=== PATIENT | male | born 1965 | race Caucasian/White ===

== ENCOUNTER 2016-05-17 14:56 | Emergency (ER) | payer SELFPAY ==
[2016-05-17 15:05] VITALS: BP 149/91
--- NOTE | 2016-05-17 15:11 | ER Document Report ---
ED Medical Screen (RME) - General Stated Complaint: THROAT PAIN/SWELLING Mode of Arrival: Ambulatory Information source: Patient Notes: Patient presents to the emergency department with sore throat hurts to swallow and fever that started yesterday. Unsure of strep exposure. Also reports chills. Patient reports he is forcing fluids down. I have greeted and performed a rapid initial assessment of this patient. A comprehensive ED assessment and evaluation of the patient, analysis of test results and completion of the medical decision making process will be conducted by additional ED providers. TRAVEL OUTSIDE OF THE [place] IN LAST 30 DAYS: No - Related Data Allergies/Adverse Reactions: No Known Allergies Allergy (Verified 09/27/12 20:00) Past Medical History - Social History Family history: None - Past Medical History Cardiac Medical History: Reports: Hx Hypertension - Immunizations Hx Diphtheria, Pertussis, Tetanus Vaccination: No Physical Exam - Vital signs Vitals: Temp Pulse Resp BP Pulse Ox 98.2 F 97 16 149/91 H 100 05/17/16 15:04 05/17/16 15:04 05/17/16 15:04 05/17/16 15:04 05/17/16 15:04 Course - Vital Signs Vital signs: Temp Pulse Resp BP Pulse Ox 98.2 F 97 16 149/91 H 100 05/17/16 15:04 05/17/16 15:04 05/17/16 15:04 05/17/16 15:04 05/17/16 15:04
[2016-05-17] MEDS ORDERED: DEXAMETHASONE SOD PHOS INJ 10 MG/1 ML VIAL IM ONE (15:42)
[2016-05-17] MEDS ORDERED: METHYLPREDNISOLONE ACETATE INJ 40 MG/1 ML ML IM ONE (15:42)
[2016-05-17] MEDS ORDERED: PENICILLIN G BENZATHINE 1.2 MILLION UNIT/2 ML DISP.SYRIN IM ONE (15:43)
--- NOTE | 2016-05-17 15:49 | ER Document Report ---
ED ENT - General Chief Complaint: Sore Throat Stated Complaint: THROAT PAIN/SWELLING Mode of Arrival: Ambulatory TRAVEL OUTSIDE OF THE [place] IN LAST 30 DAYS: No - HPI Patient complains to provider of: Throat problem - Related Data Allergies/Adverse Reactions: No Known Allergies Allergy (Verified 05/17/16 15:11) Past Medical History - General Information source: Patient - Social History Smoking Status: Never Smoker Chew tobacco use (# tins/day): No Frequency of alcohol use: Occasional Drug Abuse: None Family History: None Patient has suicidal ideation: No Patient has homicidal ideation: No - Past Medical History Cardiac Medical History: Reports: Hx Hypertension Renal/ Medical History: Denies: Hx Peritoneal Dialysis - Immunizations Hx Diphtheria, Pertussis, Tetanus Vaccination: No Review of Systems - Review of Systems Constitutional: No symptoms reported EENT: Throat swelling Cardiovascular: No symptoms reported Respiratory: No symptoms reported Gastrointestinal: No symptoms reported Genitourinary: No symptoms reported Male Genitourinary: No symptoms reported Musculoskeletal: No symptoms reported Skin: No symptoms reported Hematologic/Lymphatic: No symptoms reported Neurological/Psychological: No symptoms reported Physical Exam - Vital signs Vitals: Temp Pulse Resp BP Pulse Ox 98.2 F 97 16 149/91 H 100 05/17/16 15:04 05/17/16 15:04 05/17/16 15:04 05/17/16 15:04 05/17/16 15:04 Interpretation: Normal - General General appearance: Appears well, Alert - HEENT Head: Normocephalic, Atraumatic Eyes: Normal Pupils: PERRL - Respiratory Respiratory status: No respiratory distress Chest status: Nontender Breath sounds: Normal Chest palpation: Normal - Cardiovascular Rhythm: Regular Heart sounds: Normal auscultation Murmur: No - Abdominal Inspection: Normal Distension: No distension Bowel sounds: Normal Tenderness: Nontender Organomegaly: No organomegaly - Back Back: Normal, Nontender - Extremities General upper extremity: Normal inspection, Nontender, Normal color, Normal ROM , Normal temperature General lower extremity: Normal inspection, Nontender, Normal color, Normal ROM , Normal temperature, Normal weight bearing. No: Quincy's sign - Neurological Neuro grossly intact: Yes Cognition: Normal Orientation: AAOx4 [place] Coma Scale Eye Opening: Spontaneous [place] Coma Scale Verbal: Oriented [place] Coma Scale Motor: Obeys Commands [place] Coma Scale Total: 15 Speech: Normal Motor strength normal: LUE, RUE, LLE, RLE Sensory: Normal - Psychological Associated symptoms: Normal affect, Normal mood - Skin Skin Temperature: Warm Skin Moisture: Dry Skin Color: Normal Course - Vital Signs Vital signs: Temp Pulse Resp BP Pulse Ox 98.2 F 97 16 149/91 H 100 05/17/16 15:04 05/17/16 15:04 05/17/16 15:04 05/17/16 15:04 05/17/16 15:04 Discharge - Discharge Disposition: HOME, SELF-CARE Instructions: Strep Throat ([facility]), Penicillin V K ([facility]), Sore Throat ([facility]) Prescriptions: Tramadol HCl [Ultram 50 mg Tablet] 50 mg PO Q6HP PRN #40 tablet PRN Reason: Naproxen Sodium [Naproxen Sodium ER] 500 mg PO Q12 PRN #20 tablet.sa PRN Reason: Penicillin V Potassium [Penicillin Vk 500 mg Tablet] 500 mg PO BID #20 tablet
== END 2016-05-17 16:45 ==
LOC: ER 14:56
DX: J02.0 Streptococcal pharyngitis (principal); I10 Essential (primary) hypertension
CPT/HCPCS: 99283; 96372; 87070; 87880; J1020; J0561; J1100

== ENCOUNTER 2016-07-12 13:12 | Emergency (ER) | payer SELFPAY ==
[2016-07-12] MEDS ORDERED: ASPIRIN 81 MG TABLET, CHEWABLE PO ONE ×2 (13:55→17:00)
--- NOTE | 2016-07-12 13:56 | ER Document Report ---
ED Medical Screen (RME) - General Chief Complaint: Shortness Of Breath Stated Complaint: SHORTNESS OF BREATH Notes: Patient states he has been having problems with his lungs for a while, but is having increased shortness of breath. Denies recent illness, and has been nonproductive cough. Patient states he had asthma as a child. Patient is a nonsmoker. Patient also reports chest pain. Describes the pain as heaviness. Chest pain started 1 week ago, and is intermittent. Patient states he has a history of high blood pressure, but denies cardiac history. I have greeted and performed a rapid initial assessment of this patient. A comprehensive ED assessment and evaluation of the patient, analysis of test results and completion of the medical decision making process will be conducted by additional ED providers. TRAVEL OUTSIDE OF THE [place] IN LAST 30 DAYS: No - Related Data Allergies/Adverse Reactions: No Known Allergies Allergy (Verified 07/12/16 13:51) Past Medical History - Social History Family history: None - Past Medical History Cardiac Medical History: Reports: Hx Hypertension Renal/ Medical History: Denies: Hx Peritoneal Dialysis - Immunizations Hx Diphtheria, Pertussis, Tetanus Vaccination: No Physical Exam - Vital signs Vitals: Temp Pulse Resp BP Pulse Ox 98.1 F 78 16 141/88 H 99 07/12/16 13:18 07/12/16 13:18 07/12/16 13:18 07/12/16 13:18 07/12/16 13:18 - Respiratory Notes: Lungs clear to auscultation, patient respiratory distress. Course - Vital Signs Vital signs: Temp Pulse Resp BP Pulse Ox 98.1 F 78 16 141/88 H 99 07/12/16 13:18 07/12/16 13:18 07/12/16 13:18 07/12/16 13:18 07/12/16 13:18
[2016-07-12 15:04] LABS: ABSOLUTE EOSINOPHILS # (AUTO) 0.4 10^3/uL (0.0-0.6); ABSOLUTE MONOCYTES (AUTO) 0.6 10^3/uL (0.1-1.4); ABSOLUTE NEUT (AUTO) 2.3 10^3/uL (1.7-8.2); EOSINOPHILS % (AUTO) 9.2 % (0-6); HEMATOCRIT 32.6 % (37.9-51.0); HEMOGLOBIN 10.2 g/dL (13.5-17.0); LYMPHOCYTES % (AUTO) 22.6 % (13-45); MEAN CORPUSCULAR HEMOGLOBIN 23.4 pg (27.0-33.4); MEAN CORPUSCULAR HGB CONC 31.3 g/dL (32.0-36.0); MEAN CORPUSCULAR VOLUME 75 fl (80-97); MONOCYTES % (AUTO) 13.7 % (3-13); RED BLOOD COUNT 4.36 10^6/uL (4.35-5.55); RED CELL DISTRIBUTION WIDTH 18.2 % (11.5-14.0); SEGMENTED NEUTROPHILS % (AUTO) 53.5 % (42-78); WHITE BLOOD COUNT 4.4 10^3/uL (4.0-10.5)
[2016-07-12 15:17] LABS: ALANINE AMINOTRANSFERASE 23 U/L (21-72); ALBUMIN 4.2 g/dL (3.5-5.0); ALKALINE PHOSPHATASE 88 U/L (38-126); ANION GAP 9 (5-19); APPEARANCE,URINE CLEAR; ASPARTATE AMINO TRANSFERASE 20 U/L (17-59); BILIRUBIN,TOTAL 0.6 mg/dL (0.2-1.3); BILIRUBIN,URINE NEGATIVE (NEGATIVE); BLOOD UREA NITROGEN 15 mg/dL (7-20); CALCIUM 9.7 mg/dL (8.4-10.2); CARBON DIOXIDE 28 mmol/L (22-30); CHLORIDE 104 mmol/L (98-107); CREATINE KINASE 150 U/L (55-170); CREATININE RESULT 0.84 mg/dL (0.52-1.25); GLUCOSE 95 mg/dL (75-110); GLUCOSE, URINE NEGATIVE (NEGATIVE); KETONES,URINE NEGATIVE (NEGATIVE); LEUKOCYTE ESTERASE,URINE NEGATIVE (NEGATIVE); NITRITE,URINE NEGATIVE (NEGATIVE); POTASSIUM 4.8 mmol/L (3.6-5.0); PROTEIN,URINE NEGATIVE (NEGATIVE); SODIUM 141.1 mmol/L (137-145); TOTAL PROTEIN 7.2 g/dL (6.3-8.2); URINE SPECIFIC GRAVITY 1.011; UROBILINOGEN,URINE NEGATIVE mg/dL (<2.0)
[2016-07-12 15:24] LABS: TROPONIN I < 0.012 ng/mL
[2016-07-12 15:26] LABS: PROTHROMBIN TIME 12.8 SEC (11.4-15.4)
[2016-07-12] MEDS ORDERED: IPRATROPIUM/ALBUTEROL 0.5-2.5 MG/3 ML AMPUL NEB ONE (16:59)
[2016-07-12] MEDS ORDERED: PREDNISONE 20 MG TABLET PO ONE (16:59)
--- NOTE | 2016-07-12 17:05 | ER Document Report ---
ED General - General Chief Complaint: Shortness Of Breath Stated Complaint: SHORTNESS OF BREATH Mode of Arrival: Ambulatory Information source: Patient Notes: This is a 51-year-old male who presents for evaluation of cough for the past 2 weeks. He states that he will have intermittent spasms of cough which are worse in the morning. He denies any sputum production. He denies any fevers or chills. He has no known sick contacts. He has been recently around many tobacco smokers. He has borrowed a friend's albuterol inhaler which she has been using. He does have a history of asthma in the past but currently does not have a primary care physician and is not on any medications. He states that every time he takes a deep breath he feels the need to cough. He is not having chest pain. TRAVEL OUTSIDE OF THE [place] IN LAST 30 DAYS: No - Related Data Allergies/Adverse Reactions: No Known Allergies Allergy (Verified 07/12/16 13:51) Past Medical History - General Information source: Patient - Social History Smoking Status: Former Smoker Chew tobacco use (# tins/day): No Frequency of alcohol use: None Drug Abuse: None Family History: None Patient has suicidal ideation: No Patient has homicidal ideation: No - Past Medical History Cardiac Medical History: Reports: Hx Hypertension Pulmonary Medical History: Reports: Hx Asthma Renal/ Medical History: Denies: Hx Peritoneal Dialysis Surgical Hx: Negative - Immunizations Hx Diphtheria, Pertussis, Tetanus Vaccination: No Review of Systems - Review of Systems Notes: REVIEW OF SYSTEMS: CONSTITUTIONAL : Denies fever, chills, or sweats. EENT: Denies eye, ear, throat, or mouth pain or symptoms. Denies nasal or sinus congestion. CARDIOVASCULAR: Denies chest pain. RESPIRATORY: As per history of present illness GASTROINTESTINAL: Denies abdominal pain. Denies nausea, vomiting, or diarrhea. GENITOURINARY: Denies difficulty urinating, painful urination, burning, frequency, or blood in urine. MUSCULOSKELETAL: Denies neck or back pain or joint pain or swelling. SKIN: Denies rash or skin lesions. HEMATOLOGIC : Denies easy bruising or bleeding. LYMPHATIC: Denies swollen, enlarged glands. NEUROLOGICAL: Denies altered mental status or loss of consciousness. Denies headache. PSYCHIATRIC: Denies anxiety or stress or depression. ALL OTHER SYSTEMS REVIEWED AND NEGATIVE. Physical Exam - Vital signs Vitals: Temp Pulse Resp BP Pulse Ox 98.1 F 78 16 141/88 H 99 07/12/16 13:18 07/12/16 13:18 07/12/16 13:18 07/12/16 13:18 07/12/16 13:18 - Notes Notes: PHYSICAL EXAMINATION: GENERAL: Well-appearing, well-nourished and in no acute distress. Pleasant and conversant with no conversational dyspnea. He does have frequent cough. HEAD: Atraumatic, normocephalic. EYES: Pupils equal round and reactive to light, extraocular movements intact, sclera anicteric, conjunctiva are normal. ENT: nares patent, oropharynx clear without exudates. Moist mucous membranes. NECK: Normal range of motion, supple without lymphadenopathy LUNGS: Breath sounds clear to auscultation bilaterally and equal. No wheezes rales or rhonchi. HEART: Regular rate and rhythm without murmurs ABDOMEN: Soft, nontender, normoactive bowel sounds. No guarding, no rebound. No masses appreciated. EXTREMITIES: Normal range of motion, no pitting or edema. NEUROLOGICAL: Cranial nerves grossly intact. Normal speech. No gross focal motor or sensory deficits appreciated. PSYCH: Normal mood, normal affect. SKIN: Warm, Dry, normal turgor, no rashes or lesions noted. Course - Re-evaluation Re-evalutation: 07/12/16 17:40 Patient with no tachycardia, tachypnea, or hypoxia. Chest x-ray shows no acute process. He does not have pleuritic pain. This point I do not feel he is high risk for PE. Clinically I do not have suspicion for acute coronary syndrome. We'll treat his bronchitis and asthma with steroids and albuterol. He will follow up with a primary care physician. Strict return precautions were discussed. All of his questions were answered and he is comfortable with the plan. 07/12/16 19:11 Patient was evaluated after his DuoNeb and he stated that he felt much better. He was able to take full deep breaths without coughing. His lungs were clear to auscultation bilaterally. - Vital Signs Vital signs: Temp Pulse Resp BP Pulse Ox 97.4 F 78 18 137/98 H 100 07/12/16 18:35 07/12/16 13:18 07/12/16 18:35 07/12/16 18:35 07/12/16 18:35 - Laboratory Result Diagrams: 07/12/16 14:35 07/12/16 14:35 Laboratory results interpreted by me: 07/12/16 14:35 Hgb 10.2 L Hct 32.6 L MCV 75 L MCH 23.4 L MCHC 31.3 L RDW 18.2 H Monocytes % 13.7 H Eosinophils % 9.2 H - Diagnostic Test Radiology reviewed: Reports reviewed - Chest x-ray negative - EKG Interpretation by Me Additional EKG results interpreted by me: 07/12/16 18:03 EKG at 1430 demonstrates sinus rhythm with a rate of 69. He has nonspecific T- wave changes. There is ST elevation or depression. Discharge - Discharge Clinical Impression: Bronchitis Asthma Qualifiers: Asthma severity: unspecified severity Asthma complication type: uncomplicated Qualified Code(s): J45.909 - Unspecified asthma, uncomplicated Condition: Stable Disposition: HOME, SELF-CARE Additional Instructions: BRONCHITIS: You have acute bronchitis. This disease is an infection or inflammation of the air passageways in your lungs. Symptoms usually include cough, low grade fever, shortness of breath, and wheezing. The cough usually persists for a couple of weeks. Most cases of bronchitis get better without antibiotics. We prescribe antibiotics when we believe bacteria are damaging your airways, or if there's high risk the bronchitis will worsen into pneumonia. Increase your fluid intake. A cool mist humidifier may make your lungs more comfortable. An expectorant (cough medicine that loosens phlegm) can help. If you smoke, STOP!!! Recovery from bronchitis can be somewhat slow, but you should see improvement within a day or two. Repeated episodes of bronchitis may result in lung damage -- for example, chronic bronchitis, recurrent pneumonias, or emphysema. Call the doctor if you develop increasing fever, shortness of breath, chest pain, bloody sputum, or otherwise worsen. If you have not improved at all after several days, contact the physician. BRONCHITIS WITH BRONCHOSPASM (WHEEZING): You have bronchitis with bronchospasm (wheezing). Sometimes people develop wheezing with a chest cold. This occurs either because of an underlying tendency toward asthma or because the virus itself irritates the bronchial tubes. This irritation causes cough, shortness of breath, and wheezing. Emergency treatment of bronchospasm may include adrenaline shots or bronchodilator aerosol. You may feel lightheaded and have a rapid pulse for an hour or two. Rest and get plenty of fluids. At home, we'll treat you with a bronchodilator inhaler. Corticosteroids may be required for some patients. Until you recover, avoid chemical fumes, dusts, pollens, and exercising in very cold or dry air. If you smoke, stop now! Most cases of bronchitis get better without antibiotics. We prescribe antibiotics when we believe bacteria are damaging your airways, or if there's high risk the bronchitis will worsen into pneumonia. Increase your fluid intake. A cool mist humidifier may make your lungs more comfortable. An expectorant (cough medicine that loosens phlegm) can help. Repeated episodes of bronchitis and bronchospasm may result in lung damage -- for example, chronic bronchitis, recurrent pneumonias, or emphysema. If you develop a fever, increased wheezing, chest pain, or severe shortness of breath, you should contact the doctor immediately. COUGH-SUPPRESSANT & EXPECTORANT MEDICATION: You are to use a cough medication as needed for relief of symptoms. This medicine is a combination of an expectorant (to make the mucous thinner and more easily "coughed up") and a cough suppressant (to reduce the frequency of coughing). The cough-suppressant medicine is related to narcotics. You may experience mild nausea and sleepiness. Some patients who are very sensitive to narcotics may have stomach pain from this medicine. Taking the medicine with food reduces these side effects. Do not drive or work with machinery until you know how this medicine affects you. The expectorant should have no side effects. Iodine-containing expectorants (such as organidin) should not be taken by persons with active thyroid disease unless approved by your doctor. Call the doctor if you develop shortness of breath, hives, rash, itching, lightheadedness, or severe nausea and vomiting. INHALED BRONCHODILATORS: You have received a treatment of and/or prescription for an inhaled bronchodilator -- a medication which stimulates the airways in the lung to dilate. This improves the flow of air in asthma, bronchitis, and emphysema. These medicines have some similarity to adrenaline, and can cause similar side effects: shakiness, racing heart, and a sense of nervousness. These side effects decrease with time. Contact your doctor if these side effects are severe. Do not over-use the medicine. Too-frequent use of the inhaler may make it ineffective. Call your doctor if the inhaler is not controlling your symptoms at the prescribed doses. STEROID MEDICATION: You have been given an injection of or oral medicine of the cortisone/ steroid class. This medication is used to control inflammation or allergy. Heladio t is usually only given for a short period of time, until the acute process subsides. There are usually no side effects from short-term use of cortisone-like medications. Some persons feel an increased sense of well-being and are not sleepy at bedtime. Long-term use of cortisone medications is best avoided, unless required for a severe condition. If your condition does not remit, or relapses after the course of corticosteroid medication, you should consult your physician. FOLLOW-UP CARE: If you have been referred to a physician for follow-up care, call the physician s office for an appointment as you were instructed or within the next two days. If you experience worsening or a significant change in your symptoms, notify the physician immediately or return to the Emergency Department at any time for re-evaluation. Prescriptions: Albuterol Sulfate [Proair HFA Inhalation Aerosol 8.5 gm MDI] 2 puff IH Q4H PRN # 1 mdi PRN Reason: Guaifenesin/Codeine Phos [Robitussin-AC Syrup 59 ml] 10 ml PO QIDP PRN #100 ml PRN Reason: Cough Prednisone [Deltasone 20 mg Tablet] 3 tab PO DAILY 4 Days
[2016-07-12 18:38] VITALS: BP 137/98
--- NOTE | 2016-07-12 19:33 | EKG REPORT ---
SEVERITY:- OTHERWISE NORMAL ECG - SINUS RHYTHM BORDERLINE LEFT AXIS DEVIATION : Confirmed by: Chloé Becerra 12-Jul-2016 19:33:09
== END 2016-07-12 18:40 | disposition home or self-care (01) ==
LOC: ER 13:12
DX: J40 Bronchitis, not specified as acute or chronic (principal); J45.909 Unspecified asthma, uncomplicated; R05 Cough; Z77.22 Contact with and (suspected) exposure to environmental tobacco smoke (acute) (chronic); Z87.891 Personal history of nicotine dependence; I10 Essential (primary) hypertension
CPT/HCPCS: 93005; 94640; 99285; 36415; 82553; 82550; 85025; 85610; 80053; 81001; 84484; 71010; 93010; J7512; J7620

== ENCOUNTER 2016-11-29 18:09 | Emergency (ER) | payer OTHER ==
[2016-11-29] MEDS ORDERED: HYDROMORPHONE HCL INJ/PF 2 MG/ML AMPULE ONE (18:22)
[2016-11-29] MEDS ORDERED: NORMAL SALINE 1000 ML 1,000 ML IV PRN (18:24)
[2016-11-29] MEDS ORDERED: HYDROMORPHONE HCL INJ/PF 2 MG/ML AMPULE IV ONE ×3 (18:24→20:21)
[2016-11-29] MEDS ORDERED: DIPHENHYDRAMINE HCL 50 MG/ML VIAL IV ONE (18:24)
[2016-11-29] MEDS ORDERED: ONDANSETRON HCL INJ/PF 4 MG/2 ML SDV IV ONE (18:24)
--- NOTE | 2016-11-29 19:00 | RADIOLOGY REPORT (SQ) ---
EXAM DESCRIPTION: HAND RIGHT 3 VIEWS COMPLETED DATE/TIME: 11/29/2016 6:46 pm REASON FOR STUDY: sting ray to 5th finger COMPARISON: 01/09/2015 EXAM PARAMETERS: NUMBER OF VIEWS: Three views. TECHNIQUE: AP, lateral and oblique radiographic images acquired of the right hand. LIMITATIONS: None. FINDINGS: MINERALIZATION: Normal. BONES: No acute fracture or dislocation. No worrisome bone lesions. JOINTS: Degenerative joint changes seen in the interphalangeal joint of the thumb and in the 3rd meta tarsal-phalangeal joint. SOFT TISSUES: Small foreign body is seen at the 4th proximal phalanx. This is unchanged. OTHER: No other significant finding. IMPRESSION: Degenerative joint disease with no acute osseous abnormality and no radiopaque foreign b teresita. TECHNICAL DOCUMENTATION: JOB ID: [id number] [employer]- All Rights Reserved
[2016-11-29] MEDS ORDERED: PIPERACILLIN/TAZOBACTAM 3.375 GM VIAL IV ONE (19:14)
[2016-11-29] MEDS ORDERED: LIDOCAINE 1% INJ-PF (10 MG/ML) 30 ML SDV INJ ONE (19:18)
[2016-11-29] MEDS ORDERED: DOXYCYCLINE HYCLATE 100 MG TABLET PO ONE (20:25)
[2016-11-29] MEDS ORDERED: DIPH/PERTUSS(ACELL)/TETANUS VAC/PF 0.5 ML SYR (>=10YO) IM ONE (20:25)
--- NOTE | 2016-11-29 20:27 | ER Document Report ---
ED General - General Chief Complaint: Puncture Wound Stated Complaint: POSSIBLE STING RAY BITE Mode of Arrival: Medic Information source: Patient Notes: This is a 51-year-old man that presents to the emergency room with a stingray bite to the right fifth finger. Patient is in excruciating pain. TRAVEL OUTSIDE OF THE [place] IN LAST 30 DAYS: No - HPI Onset: Just prior to arrival Onset/Duration: Sudden Quality of pain: Dull Severity: Severe Pain Level: 5 Associated symptoms: denies: Chest pain, Fever, Shortness of breath Exacerbated by: Denies Relieved by: Denies Similar symptoms previously: No Recently seen / treated by doctor: No - Related Data Allergies/Adverse Reactions: No Known Allergies Allergy (Verified 07/12/16 13:51) Past Medical History - General Information source: Patient - Social History Smoking Status: Unknown if Ever Smoked Cigarette use (# per day): No Chew tobacco use (# tins/day): No Frequency of alcohol use: None Drug Abuse: None Lives with: Family Family History: None Patient has suicidal ideation: No Patient has homicidal ideation: No - Past Medical History Cardiac Medical History: Reports: Hx Hypertension Pulmonary Medical History: Reports: Hx Asthma Renal/ Medical History: Denies: Hx Peritoneal Dialysis Surgical Hx: Negative - Immunizations Hx Diphtheria, Pertussis, Tetanus Vaccination: No Review of Systems - Review of Systems Constitutional: denies: Chills, Fever EENT: No symptoms reported Cardiovascular: No symptoms reported Respiratory: No symptoms reported Gastrointestinal: No symptoms reported Genitourinary: No symptoms reported Male Genitourinary: No symptoms reported Musculoskeletal: See HPI Skin: No symptoms reported Hematologic/Lymphatic: No symptoms reported Neurological/Psychological: No symptoms reported - 1 Physical Exam - Vital signs Vitals: Temp Pulse Resp BP Pulse Ox 98.5 F 93 16 151/83 H 99 11/29/16 18:26 11/29/16 18:26 11/29/16 18:26 11/29/16 18:26 11/29/16 18:26 Notes: Physical exam: GENERAL: 51-year-old man, alert and oriented 3, in significant pain. HEAD: Atraumatic, normocephalic. EYES: Pupils equal round and reactive to light, extraocular movements intact, sclera anicteric, conjunctiva are normal. ENT: Moist mucous membranes. NECK: Normal range of motion, supple LUNGS: Breath sounds clear HEART: Regular rate and rhythm without murmurs, rubs or gallops. ABDOMEN: Soft, normoactive bowel sounds. No tenderness to palpation. No guarding, no rebound. No masses appreciated. EXTREMITIES: Normal range of motion, no pitting or edema. No clubbing or cyanosis.. There is an entrance laterally over the dorsal proximal phalanx of the fifth finger. There is no obvious foreign body. NEUROLOGICAL: Cranial nerves II through XII fatou patient has pain and some swelling over the fifth finger sly intact. Normal speech, normal gait. PSYCH: Normal mood, normal affect. SKIN: Warm, Dry, normal turgor, no rashes or lesions noted. Course - Vital Signs Vital signs: Temp Pulse Resp BP Pulse Ox 98.5 F 78 18 153/93 H 100 11/29/16 18:26 11/29/16 20:48 11/29/16 20:48 11/29/16 20:48 11/29/16 20:48 - Diagnostic Test Radiology reviewed: Image reviewed, Reports reviewed - no fb Procedures - Incision and Drainage Right Finger Time completed: 20:23 Type: Single Anesthetic type: 1% Lidocaine mL's of anesthetic: 3 Blade size: 11 I&D procedure: Chlorprep applied Incision Method: Incision made by scalpel Notes: 11/29/16 20:23 I extended the opening in order to identify any foreign body. I did irrigate the cavity. Feels like the stinger went and laterally over the dorsal aspect of the finger. The extensor tendons are intact. Fingers neurovascularly intact. I irrigated the area out with saline and reinspected and could not find any foreign body. Patient received IV Zosyn and a tetanus shot in the ER. Discharge - Discharge Clinical Impression: Stingray to the right hand Condition: Stable Disposition: HOME, SELF-CARE Instructions: Tetanus Immunization Given ([facility]) Additional Instructions: Return to the emergency room for increasing pain, redness, swelling or pus discharge or any concerns that the wound is getting infected or take the antibiotics as prescribed: Start tomorrow Take the pain medicine as needed. The pain medicine you're taking prescribed as a narcotic. There are several important things you should know about this medicine: 1. This medicine contains Tylenol: It is important that you do not take Tylenol (or acetaminophen) while on this medicine. Tylenol is metabolized by the liver and taking too much Tylenol (acetaminophen) can lay to liver damage and even liver failure. 2. Taking narcotics for too long can lead to physical and mental dependence. Take this medicine only if really needed and in the lowest quantity to achieve pain relief. 3. Do not drink alcohol while on this medicine. Alcohol interacts with narcotics and the combination can be dangerous. 4. Do not drive or operate machinery while on this medicine. 5. Narcotics do cause constipation, so drink plenty of fluids and daily stool softeners. Prescriptions: Doxycycline Hyclate 100 mg PO BID #20 capsule Oxycodone HCl/Acetaminophen [Percocet 5-325 mg Tablet] 1 - 2 tab PO ASDIR PRN # 25 tablet PRN Reason: Forms: Return to Work Referrals: VENANCIO CASTILLO, DO [ACTIVE STAFF] - Follow up as needed (This is the number the hand surgeon. Call the office on Friday to be seen. Tell them you are in the ER with a stingray sting to the right hand. Tell them that the ER doctor wanted to seen this week.)
[2016-11-29 20:48] VITALS: BP 153/93
== END 2016-11-29 20:49 | disposition home or self-care (01) ==
LOC: ER 18:09
PROC: 0H9MXZZ Drainage of Right Foot Skin, External Approach (ICD-10-PCS; principal; 2016-11-29)
DX: T63.511A Toxic effect of contact with stingray, accidental (unintentional), initial encounter (principal); W56.81XA Bitten by other nonvenomous marine animals, initial encounter
CPT/HCPCS: 96376; 99284; 96361; 90471; 96375; 96365; 73130; 90715; 10120; J1200; J1170; J2405; J7030; J2543

== ENCOUNTER 2017-04-08 17:17 | Emergency (ER) | payer OTHER ==
[2017-04-08] MEDS ORDERED: HYDROCODONE/ACETAMINOPHEN 5-325 MG TABLET PO ONE (18:29)
--- NOTE | 2017-04-08 18:35 | ER Document Report ---
ED Fall - General Chief Complaint: Fall Injury Stated Complaint: FALL/RIGHT SIDE BODY PAIN,LEFT ELBOW Time Seen by Provider: 04/08/17 18:26 Mode of Arrival: Ambulatory Information source: Patient Notes: 51-year-old male presents to ED for complaint of left elbow, right flank, right arm, and right hip after he tripped on some wet metal slipped and fell landing on her other medical onto his right side jarring his left elbow and causing his sciatica to be inflamed. He has pain in the right kidney and liver area. No bruising scratching or lacerations noted TRAVEL OUTSIDE OF THE [place] IN LAST 30 DAYS: No - HPI Occurred: Just prior to arrival Where: Public place Context: Slipped Associated symptoms: None Location of injury/pain: Abdomen, Back, Elbow, Hip, Upper extremity - right Quality of pain: Achy, Sharp Severity: Moderate Pain Level: 4 - Related data Allergies/Adverse Reactions: No Known Allergies Allergy (Verified 07/12/16 13:51) Past Medical History - General Information source: Patient - Social History Smoking Status: Never Smoker Cigarette use (# per day): No Chew tobacco use (# tins/day): No Smoking Education Provided: No Frequency of alcohol use: Heavy Drug Abuse: None Occupation: 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 denies: CAD, COPD, DM, Hyperlipidemia, Hypertension, Malignancy, Thyroid Disfunction Patient has homicidal ideation: No - Medical History Medical History: Other - Anemia - Past Medical History Cardiac Medical History: Reports: Hx Hypertension Pulmonary Medical History: Reports: Hx Asthma EENT Medical History: Reports: None Neurological Medical History: Reports: None Endocrine Medical History: Reports: None Renal/ Medical History: Reports: None Malignancy Medical History: Reports None GI Medical History: Reports: None Musculoskeltal Medical History: Reports Hx Arthritis, Reports Hx Musculoskeletal Trauma Skin Medical History: Reports None Psychiatric Medical History: Reports: None Traumatic Medical History: Reports: None Infectious Medical History: Reports: None Surgical Hx: Negative Past Surgical History: Reports: None - Immunizations Hx Diphtheria, Pertussis, Tetanus Vaccination: No Review of Systems - Review of Systems Constitutional: No symptoms reported EENT: No symptoms reported Cardiovascular: No symptoms reported Respiratory: No symptoms reported Gastrointestinal: Abdominal pain Genitourinary: Flank pain Male Genitourinary: No symptoms reported Musculoskeletal: Back pain, Joint pain, Muscle pain, Muscle stiffness Skin: No symptoms reported Hematologic/Lymphatic: No symptoms reported Neurological/Psychological: No symptoms reported -: Yes All other systems reviewed and negative Physical Exam - Vital signs Vitals: Temp Pulse Resp BP Pulse Ox 97.7 F 79 18 165/94 H 99 04/08/17 17:28 04/08/17 17:28 04/08/17 17:28 04/08/17 17:28 04/08/17 17:28 Interpretation: Normal - General General appearance: Appears well, Alert - HEENT Head: Normocephalic, Atraumatic Eyes: Normal Pupils: PERRL - Respiratory Respiratory status: No respiratory distress Chest status: Nontender Breath sounds: Normal Chest palpation: Normal - Cardiovascular Rhythm: Regular Heart sounds: Normal auscultation Murmur: No - Abdominal Inspection: Normal Distension: No distension Bowel sounds: Normal Tenderness: Tender - right upper and lower abdomen after fall Organomegaly: No organomegaly - Back Back: Normal, CVA tenderness - right flank area after fall - Extremities General upper extremity: Normal inspection, Normal color, Normal ROM, Normal temperature General lower extremity: Normal inspection, Nontender, Normal color, Normal ROM , Normal temperature, Normal weight bearing. No: Quincy's sign Arm: Tender - right Elbow: Tender - left, Limited ROM - due to pain Hip: Tender - right - Neurological Neuro grossly intact: Yes Cognition: Normal Orientation: AAOx4 [place] Coma Scale Eye Opening: Spontaneous [place] Coma Scale Verbal: Oriented [place] Coma Scale Motor: Obeys Commands [place] Coma Scale Total: 15 Speech: Normal Motor strength normal: LUE, RUE, LLE, RLE Sensory: Normal - Psychological Associated symptoms: Normal affect, Normal mood - Skin Skin Temperature: Warm Skin Moisture: Dry Skin Color: Normal Course - Re-evaluation Re-evalutation: 04/08/17 21:10 Discussed CAT scan x-ray and labs with patient and Dr. Ro. Patient has a history of anemia and he has frequent low H&H's. He states he is on iron noticed that he needs to increase it. He also drinks daily and has been told that he needs to stop. No acute injuries noted to the back or the elbow. Patient will be discharged home with a [employer] dispense pack and a prescription for Flexeril. Patient was instructed to use ibuprofen for his pain but to be careful that he does not take it while drinking. He also was told to take ibuprofen on a full stomach. - Vital Signs Vital signs: Temp Pulse Resp BP Pulse Ox 98.7 F 79 16 155/89 H 99 04/08/17 20:54 04/08/17 20:54 04/08/17 20:54 04/08/17 20:54 04/08/17 20:54 - Laboratory Result Diagrams: 04/08/17 18:46 04/08/17 18:46 Laboratory results interpreted by me: 04/08/17 18:46 RBC 4.16 L Hgb 8.8 L Hct 28.7 L MCV 69 L MCH 21.2 L MCHC 30.7 L RDW 19.2 H Band Neutrophils % 1 L - Diagnostic Test Radiology reviewed: Image reviewed, Reports reviewed Discharge - Discharge Clinical Impression: right flank contusion Fall Qualifiers: Encounter type: initial encounter Qualified Code(s): W19.XXXA - Unspecified fall, initial encounter Left elbow contusion Qualifiers: Encounter type: initial encounter Qualified Code(s): S50.02XA - Contusion of left elbow, initial encounter Low back pain Qualifiers: Chronicity: unspecified Back pain laterality: right Sciatica presence: with sciatica Sciatica laterality: sciatica of right side Qualified Code(s): M54.41 - Lumbago with sciatica, right side Contusion of right hip Qualifiers: Encounter type: initial encounter Qualified Code(s): S70.01XA - Contusion of right hip, initial encounter Condition: Stable Disposition: HOME, SELF-CARE Instructions: Family Physicians / Practices Additional Instructions: CONTUSION: Your injury has resulted in a contusion -- a crushing of the deep tissues. No injury to important structures was detected during the physician's exam. Contusions vary in the amount of pain they cause, and in the length of time required for healing. Typically, the area will become bruised, and will remain painful to touch for two or three weeks. However, most patients are back to working and playing within a few days. After the initial period of rest and cold-packs, your symptoms (together with the doctor's recommendations) will determine how rapidly you can get back to full activity. Usually this means "do what feels okay, but don't do things that hurt." If re-examination was recommended, it's important to follow up as instructed. Call the doctor or return any time if pain increases, if swelling becomes severe, if you develop numbness or weakness in an injured extremity, or if any other alarming symptoms occur. LOW BACK PAIN: Three out of every four people will have an episode of disabling back pain during their lifetime. Most commonly the pain is due to straining of the muscles and ligaments in the low back. Usual treatment includes: (1) Rest on a firm surface. Avoid lying on your stomach. (2) Ice pack the painful area. After a few days, gentle heat may be used intermittently to relax the area, or ice packs can be continued. (3) Medication may be needed -- muscle relaxers and antiinflammatory medicines are commonly used. (4) As the back improves, exercises are prescribed to strengthen the back and abdominal muscles. Your doctor will advise you on the proper care for your back at each stage in your recovery. You may be better in a few days -- or healing may take several weeks. If new symptoms of a "herniated disc" (radiation of pain, numbness, or tingling down the back of the leg or weakness in the leg) occur, you should be re-examined. Further testing may be necessary. USE OF TYLENOL (ACETAMINOPHEN): Acetaminophen may be taken for pain relief or fever control. It's much safer than aspirin, offering a wider range of "safe" dosages. It is safe during . Some brand names are Tylenol, Panadol, Datril, Anacin 3, Tempra, and Liquiprin. Acetaminophen can be repeated every four hours. The following are maximum recommended dosages: WEIGHT Dose Drops Elixir Chewable( 80mg) (LBS.) drprs=droppers tsp=teaspoon 6 40 mg 0.4 ml (1/2) 6-11 80 mg 0.8 ml (full) tsp 1 tab 12-16 120 mg 1 1/2 drprs 3/4 tsp 1 1/2 tabs 17-23 160 mg 2 drprs 1 tsp 2 tabs 24-30 240 mg 3 drprs 1 1/2 tsp 3 tabs 30-35 320 mg 2 tsp 4 tabs 36-41 360 mg 2 1/4 tsp 4 1/2 tabs 42-47 400 mg 2 1/2 tsp 5 tabs 48-53 480 mg 3 tsp 6 tabs 54-59 520 mg 3 1/4 tsp 6 1/2 tabs 60-64 560 mg 3 1/2 tsp 7 tabs 65-70 600 mg 3 3/4 tsp 7 1/2 tabs 71-76 640 mg 4 tsp 8 tabs 77-82 720 mg 4 1/2 tsp 9 tabs 83-88 800 mg 5 tsp 10 tabs >89 pounds or adults 650 mg to 900 mg Acetaminophen can be repeated every four hours. Maximum dose not to exceed 4000 mg a day. These maximum recommended dosages are slightly higher than the dosages written on the product container, but these dosages are very safe and below the toxic dosage for acetaminophen. Ibuprofen Ibuprofen is an excellent, safe drug for pain control. In addition, it has potent antiinflammatory effects which are beneficial, especially in the treatment of injuries, arthritis, or tendonitis. It's best to take ibuprofen with food. Persons with ulcer disease or allergy to aspirin should notify their physician of this before taking ibuprofen. Take the medication exactly as prescribed. Don't take additional doses unless instructed to do so by your doctor. If you develop wheezing, shortness of breath, hives, faintness, stomach pain, vomiting, or dark black stools, return for re-evaluation at once. ICE PACKS: Apply ice packs frequently against the painful area. Many different schedules are recommended, such as "20 minutes on, 20 minutes off" or "one hour ice, two hours rest." If you need to work, you may need to go longer between ice treatments. You should plan to have the area ice packed AT LEAST one fourth of the time. The ice should be applied over the wrap, tape, or splint, or over a layer of cloth -- not directly against the skin. Some ice bags have a built-in cloth and can be put directly on the skin. WARM PACKS: After approximately two days, apply gentle heat (such as a heating pad or hot water bottle) for about 20 to 30 minutes about every two hours -- at least four times daily. Warmth and elevation will help you make a more rapid recovery , and will ease the pain considerably. Do not use HOT heat, and never apply heat for longer than 30 minutes. The continuous heat can invisibly damage skin and muscles -- even when no burn is seen on the surface. Damaged muscles can make you MORE sore. MUSCLE RELAXERS: Muscle relaxing medications are usually prescribed for acute muscle spasm or injury to the neck and back. They are often combined with antiinflammatory pain medication for increased relief. You may stop the muscle relaxer when the pain and stiffness have improved. Start the medication again if spasms recur. Muscle relaxers may cause drowsiness, especially with the first dose. Do not operate machinery or drive while under the effects of the medication. Most muscle relaxers last up to 24 hours. Do not combine the medication with alcohol. ORAL NARCOTIC MEDICATION: You have been given a [employer] dispense pack for pain control. This medication is a narcotic. It's best taken with food, as nausea can result if taken on an empty stomach. Don't operate machinery or drive within six hours of taking this medication. Do not combine this medicine with alcohol, or with any medication which can cause sedation (such as cold tablets or sleeping pills) unless you get permission from the physician. Narcotics tend to cause constipation. If possible, drink plenty of fluids and eat a diet high in fiber and fruits. FOLLOW-UP CARE: If you have been referred to a physician for follow-up care, call the physician s office for an appointment as you were instructed or within the next two days. If you experience worsening or a significant change in your symptoms, notify the physician immediately or return to the Emergency Department at any time for re-evaluation. Prescriptions: Cyclobenzaprine HCl [Flexeril 5 mg Tablet] 5 mg PO TID #10 tablet Forms: Elevated Blood Pressure, Return to Work Referrals: [facility] [Provider Group] - Follow up as needed
[2017-04-08 19:07] LABS: HEMATOCRIT 28.7 % (37.9-51.0); HEMOGLOBIN 8.8 g/dL (13.5-17.0); HGB HCT DIFFERENCE -2.3; MEAN CORPUSCULAR HEMOGLOBIN 21.2 pg (27.0-33.4); MEAN CORPUSCULAR HGB CONC 30.7 g/dL (32.0-36.0); MEAN CORPUSCULAR VOLUME 69 fl (80-97); RED BLOOD COUNT 4.16 10^6/uL (4.35-5.55); RED CELL DISTRIBUTION WIDTH 19.2 % (11.5-14.0); WHITE BLOOD COUNT 5.3 10^3/uL (4.0-10.5)
[2017-04-08 19:24] LABS: ABSOLUTE EOSINOPHILS# (MANUAL) 0.2 10^3/uL (0.0-0.6); BAND NEUTROPHILS % (MANUAL) 1 % (3-5); BASOPHILS % (MANUAL) 0 % (0-2); EOSINOPHILS % (MANUAL) 4 % (0-6); LYMPHOCYTES % (MANUAL) 20 % (13-45); TOTAL CELLS COUNTED 100
[2017-04-08 19:25] LABS: ALANINE AMINOTRANSFERASE 31 U/L (21-72); ALBUMIN 4.5 g/dL (3.5-5.0); ALKALINE PHOSPHATASE 97 U/L (38-126); ANION GAP 12 (5-19); ASPARTATE AMINO TRANSFERASE 19 U/L (17-59); BILIRUBIN,DIRECT 0.3 mg/dL (0.0-0.4); BILIRUBIN,TOTAL 0.8 mg/dL (0.2-1.3); BLOOD UREA NITROGEN 15 mg/dL (7-20); CALCIUM 9.1 mg/dL (8.4-10.2); CARBON DIOXIDE 26 mmol/L (22-30); CHLORIDE 103 mmol/L (98-107); CREATININE RESULT 0.89 mg/dL (0.52-1.25); GLUCOSE 87 mg/dL (75-110); HYPOCHROMASIA 2+; POTASSIUM 4.2 mmol/L (3.6-5.0); SODIUM 140.6 mmol/L (137-145); TOTAL PROTEIN 7.2 g/dL (6.3-8.2)
[2017-04-08 19:26] LABS: ANISOCYTOSIS 2+; MICROCYTOSIS 2+; OVALOCYTES 1+; POIKILOCYTOSIS 1+
[2017-04-08 19:54] LABS: APPEARANCE,URINE CLEAR; BILIRUBIN,URINE NEGATIVE (NEGATIVE); GLUCOSE, URINE NEGATIVE (NEGATIVE); KETONES,URINE NEGATIVE (NEGATIVE); LEUKOCYTE ESTERASE,URINE NEGATIVE (NEGATIVE); NITRITE,URINE NEGATIVE (NEGATIVE); PROTEIN,URINE NEGATIVE (NEGATIVE); URINE SPECIFIC GRAVITY 1.016; UROBILINOGEN,URINE NEGATIVE mg/dL (<2.0)
--- NOTE | 2017-04-08 19:56 | RADIOLOGY REPORT (SQ) ---
EXAM DESCRIPTION: ELBOW LEFT OVER 2 VIEWS COMPLETED DATE/TIME: 04/08/2017 7:38 pm REASON FOR STUDY: Fall and pain COMPARISON: None. NUMBER OF VIEWS: Four views. TECHNIQUE: AP, lateral, and both oblique radiographic images acquired of the left elbow. LIMITATIONS: None. FINDINGS: MINERALIZATION: Normal. BONES: No acute fracture or dislocation. No worrisome bone lesions. JOINT: No effusion. SOFT TISSUES: No soft tissue swelling. No foreign body. OTHER: No other significant finding. IMPRESSION: NEGATIVE STUDY OF THE LEFT ELBOW. NO RADIOGRAPHIC EVIDENCE OF ACUTE INJURY. TECHNICAL DOCUMENTATION: JOB ID: [id number] [employer]- All Rights Reserved
--- NOTE | 2017-04-08 20:32 | RADIOLOGY REPORT (SQ) ---
EXAM DESCRIPTION: CT ABD/PELVIS WITH IV ONLY COMPLETED DATE/TIME: 04/08/2017 8:15 pm REASON FOR STUDY: right abdomen pelvic flank pain after fall COMPARISON: None. TECHNIQUE: CT scan of the abdomen and pelvis performed using helical scanning technique with dynamic intravenous contrast injection. No oral contrast. Images reviewed with lung, soft tissue, and bone windows. Reconstructed coronal and sagittal MPR images reviewed. Delayed images for evaluation of the urinary system also acquired. All images stored on PACS. All CT scanners at this facility use dose modulation, iterative reconstruction, and/or weight based d osing when appropriate to reduce radiation dose to as low as reasonably achievable (ALARA). [facility]: Dose Right [facility]: CareDose [facility]: Dose Right [facility]: Teradose 4D [facility]: [employer] CONTRAST TYPE AND DOSE: 98 mL Isovue 370 RENAL FUNCTION: Creatinine 0.89 RADIATION DOSE: . LIMITATIONS: None. FINDINGS: LOWER CHEST: There are some minimal linear densities in the left lung base which could rep resent subsegmental atelectasis or scarring. LIVER: Normal size. No masses. No dilated ducts. SPLEEN: Normal size. No focal lesions. PANCREAS: No masses. No significant calcifications. No adjacent inflammation or peripancreatic fluid collections. Pancreatic duct not dilated. GALLBLADDER: No identified stones by CT criteria. No inflammatory changes to suggest cholecystitis. ADRENAL GLANDS: No significant masses or asymmetry. RIGHT KIDNEY AND URETER: No solid masses. No significant calcifications. No hydronephrosis or hyd roureter. LEFT KIDNEY AND URETER: No solid masses. No significant calcifications. No hydronephrosis or hydr oureter. AORTA AND VESSELS: No aneurysm. No dissection. Renal arteries, SMA, celiac without stenosis. RETROPERITONEUM: No retroperitoneal adenopathy, hemorrhage or masses. BOWEL AND PERITONEAL CAVITY: No masses or inflammatory changes. No free fluid or peritoneal masses. APPENDIX: Calcific densities are identified within the appendix consistent with appendicoliths. Ther e is no CT evidence for appendicitis PELVIS: No mass. No free fluid. Normal bladder. ABDOMINAL WALL: No masses. No hernias. BONES: No significant or acute findings. OTHER: No other significant finding. IMPRESSION: Calcific densities are identified within the appendix consistent with appendicoliths. T here is no CT evidence for appendicitis. No other significant intra-abdominopelvic abnormalities wer e identified. Other findings as noted above TECHNICAL DOCUMENTATION: JOB ID: [id number] Quality ID # [id number]: Final reports with documentation of one or more dose reduction techniques (e.g., Au tomated exposure control, adjustment of the mA and/or kV according to patient size, use of iterative reconstruction technique) 2010 [employer]- All Rights Reserved
[2017-04-08 20:58] VITALS: BP 155/89
[2017-04-08] MEDS ORDERED: HYDROCODONE/ACETAMINOPHEN 5-325 MG 6 TAB/DSPK PO PRN (21:05)
== END 2017-04-08 21:22 | disposition home or self-care (01) ==
LOC: ER 17:17
DX: S30.1XXA Contusion of abdominal wall, initial encounter (principal); S50.02XA Contusion of left elbow, initial encounter; S70.01XA Contusion of right hip, initial encounter; M54.41 Lumbago with sciatica, right side; M79.1 Myalgia; W01.0XXA Fall on same level from slipping, tripping and stumbling without subsequent striking against object, initial encounter; I10 Essential (primary) hypertension
CPT/HCPCS: 36415; 74177; 80053; 81001; 85025; 99284

== ENCOUNTER 2017-12-03 10:02 | Emergency (ER) | payer SELFPAY ==
--- NOTE | 2017-12-03 10:52 | ER Document Report ---
ED Medical Screen (RME) - General Chief Complaint: Shortness Of Breath Stated Complaint: SHORTNESS OF BREATH Time Seen by Provider: 12/03/17 10:50 TRAVEL OUTSIDE OF THE [place] IN LAST 30 DAYS: No - HPI Patient complains to provider of: Shortness of breath last night Onset: Yesterday Onset/Duration: Sudden Quality of pain: No pain Associated Symptoms: Shortness of breath - 52-year-old male presents for evaluation of shortness of breath yesterday after having been working on his truck, he has had a low-grade sore throat and possible URI. He subsequently had some chest tightness and shortness of breath which resolved after is using of albuterol and a little bit of time. He has had episodes like this in the past which were attributed generally to his asthma. Nothing seemed to make it any worse, the albuterol seem to make it better, there is no exertional component, he had no chest pain, no lightheadedness, no dizziness. - Related Data Allergies/Adverse Reactions: No Known Allergies Allergy (Verified 12/03/17 10:05) Past Medical History - Social History Cigarette use (# per day): No Chew tobacco use (# tins/day): No Frequency of alcohol use: None Drug Abuse: Marijuana Family history: None - Past Medical History Cardiac Medical History: Reports: Hx Hypertension Pulmonary Medical History: Reports: Hx Asthma Renal/ Medical History: Denies: Hx Peritoneal Dialysis Musculoskeltal Medical History: Reports Hx Arthritis, Reports Hx Musculoskeletal Trauma - Immunizations Hx Diphtheria, Pertussis, Tetanus Vaccination: No Review of Systems - Review of Systems -: Yes All other systems reviewed and negative Physical Exam - Vital signs Vitals: Temp Pulse Resp BP Pulse Ox 98.8 F 97 16 174/97 H 100 12/03/17 10:06 12/03/17 10:06 12/03/17 10:06 12/03/17 10:06 12/03/17 10:06 - General General appearance: Appears well - HEENT Head: Normocephalic Eyes: Normal Conjunctiva: Normal Cornea: Normal Eyelashes: Normal Sinus: Normal Nasal: Normal Mouth/Lips: Normal Neck: Anterior cervical chain - Respiratory Chest status: Nontender Breath sounds: Wheezing Chest palpation: Normal - Cardiovascular Heart sounds: Normal auscultation Friction rub: No Mignon's crunch: No Gallop: None auscultated - Abdominal Inspection: Normal Distension: No distension - Back Back: Normal - Extremities General upper extremity: Normal inspection General lower extremity: Normal inspection Shoulder: Normal - Neurological Neuro grossly intact: Yes Cognition: Normal - Psychological Associated symptoms: Normal affect Course - Re-evaluation Re-evalutation: 12/03/17 11:06 This 52-year-old asthmatic was exposed yesterday while working on his truck to an inhalational agent after which he was inside at the sink and had an episode of shortness of breath. He waited after thumping on his chest a couple of times and then used his albuterol inhaler which seemed to open up his lungs. He has had a sore throat for the last few days and may have had a brewing URI. Given that he has had a URI and then an episode of what sounds like potentially of an asthma exacerbation will presumptively treat for community-acquired pneumonia and administer a dose of steroids to help hold off against any developing asthma exacerbation. This patient was given strict return precautions as he does not have a primary physician at this time in case of worsening shortness of breath. He was ambulatory in the emergency department with a normal pulse ox and well- appearing. He agreed with the current course of action. - Vital Signs Vital signs: Temp Pulse Resp BP Pulse Ox 98.8 F 97 16 174/97 H 100 12/03/17 10:06 12/03/17 10:06 12/03/17 10:06 12/03/17 10:06 12/03/17 10:06 Doctor's Discharge - Discharge Condition: Stable Disposition: HOME, SELF-CARE Additional Instructions: You were seen today in the emergency room for shortness of breath and wheezing. You were given a prescription for albuterol as well as an antibiotic which you should take as directed on the bottle. If you are not feeling better in 4 days return to the emergency room. Use the steroid prescribed to you as well over the next 4 days Prescriptions: Albuterol Sulfate [Proair HFA Inhalation Aerosol 8.5 gm MDI] 2 puff IH Q4H PRN # 1 mdi PRN Reason: Doxycycline Hyclate 100 mg PO BID #14 capsule Prednisone 50 mg PO DAILY #4 tablet
[2017-12-03] MEDS: PREDNISONE 20 MG TABLET PO ONE (11:10)
[2017-12-03] MEDS: DOXYCYCLINE HYCLATE 100 MG TABLET PO ONE (11:10)
[2017-12-03 11:16] VITALS: BP 163/97
== END 2017-12-03 11:18 | disposition home or self-care (01) ==
LOC: ER 10:02
DX: J45.909 Unspecified asthma, uncomplicated (principal); I10 Essential (primary) hypertension; J02.9 Acute pharyngitis, unspecified
CPT/HCPCS: 99284; J7512

== ENCOUNTER 2017-12-18 09:43 | Emergency (ER) | payer SELFPAY ==
[2017-12-18] MEDS ORDERED: KETOROLAC TROMETHAMINE 60 MG/2 ML SDV IM ONE (10:37)
[2017-12-18] MEDS ORDERED: LISINOPRIL 5 MG TABLET PO ONE (10:40)
--- NOTE | 2017-12-18 10:40 | ER Document Report ---
ED General - General TRAVEL OUTSIDE OF THE U.S. IN LAST 30 DAYS: No <STORMY DESAI - Last Filed: 12/18/17 12:38> <FIOREBENJAMIN Amanuel - Last Filed: 12/18/17 12:44> - General Chief Complaint: Shortness Of Breath Stated Complaint: THROAT PAIN, DIFFICULTY BREATHING Time Seen by Provider: 12/18/17 10:36 Notes: Chief complaint: Sore throat and left side of the neck pain History of complain:( obtained from----patient) 52 years old male with history of hypertension, asthma, presents today with left side of the neck swelling and difficulty in swallowing and having hacking cough on and off. Particularly in the mornings. Largely dry cough. Denies any fever chills or other constitutional symptoms. This is been going on for the last 15-16 days. Onset: Gradual Duration: As above Severity: Moderate to severe Quality: Sharp Context: Unknown Exacerbating factor and relieving factors: Swallowing REVIEW OF SYSTEMS: CONSTITUTIONAL : Denies fever, chills, or sweats. Denies recent illness. EENT: Denies eye, ear, throat, or mouth pain or symptoms. Denies nasal or sinus congestion or discharge. Denies throat, tongue, or mouth swelling or difficulty swallowing. CARDIOVASCULAR: Denies chest pain. Denies palpitations or racing or irregular heart beat. Denies ankle edema. RESPIRATORY: Denies cough, cold, or chest congestion. Denies shortness of breath, difficulty breathing, or wheezing. GASTROINTESTINAL: Denies distention. Denies nausea, vomiting, or diarrhea. Denies blood in vomitus, stools, or per rectum. Denies black, tarry stools. Denies constipation. GENITOURINARY: Denies difficulty urinating, painful urination, burning, frequency, blood in urine, or discharge. FEMALE GENITOURINARY: Denies vaginal bleeding, heavy or abnormal periods, irregular periods. Denies vaginal discharge or odor. MUSCULOSKELETAL: Denies back or neck pain or stiffness. Denies joint pain or swelling. SKIN: Denies rash, lesions or sores. HEMATOLOGIC : Denies easy bruising or bleeding. LYMPHATIC: Denies swollen, enlarged glands. NEUROLOGICAL: Denies confusion or altered mental status. Denies passing out or loss of consciousness. Denies dizziness or lightheadedness. Denies headache. Denies weakness or paralysis or loss of use of either side. Denies problems with gait or speech. Denies sensory loss, numbness, or tingling. Denies seizures. PSYCHIATRIC: Denies anxiety or stress. Denies depression, suicidal ideation, or homicidal ideation. ALL OTHER SYSTEMS REVIEWED AND NEGATIVE. PHYSICAL EXAMINATION: GENERAL: Well-appearing, well-nourished and in no acute distress. HEAD: Atraumatic, normocephalic. EYES: Pupils equal round and reactive to light, extraocular movements intact, conjunctiva are normal. ENT: Nares patent, oropharynx clear without exudates. Moist mucous membranes. Left tonsils are enlarged pushing the soft palate beyond the midline. Left upper anterior neck swelling noted which is tender on palpation. NECK: Normal range of motion, supple without lymphadenopathy LUNGS: Breath sounds clear to auscultation bilaterally and equal. No wheezes rales or rhonchi. HEART: Regular rate and rhythm without murmurs ABDOMEN: Soft, nontender, nondistended abdomen. No guarding, no rebound. No masses appreciated. Examination of genitals-deferred Musculoskeletal: Normal range of motion, no pitting or edema. No cyanosis. NEUROLOGICAL: Cranial nerves grossly intact. Normal speech, normal gait. Normal sensory, motor exams PSYCH: Normal mood, normal affect. SKIN: Warm, Dry, normal turgor, no rashes or lesions noted. Dictation was performed using [employer] voice recognition software (STORMY DESAI) - [facility] Notes: Dictated (STORMY DESAI) - Related Data Allergies/Adverse Reactions: No Known Allergies Allergy (Verified 12/18/17 10:21) Past Medical History - Social History Smoking Status: Never Smoker Cigarette use (# per day): No Chew tobacco use (# tins/day): No Smoking Education Provided: No Frequency of alcohol use: Rare Drug Abuse: Marijuana Family History: Reviewed & Not Pertinent, Arthritis, CVA. denies: CAD, COPD, DM , Hyperlipidemia, Hypertension, Malignancy, Thyroid Disfunction - Past Medical History Cardiac Medical History: Reports: Hx Hypertension Pulmonary Medical History: Reports: Hx Asthma Renal/ Medical History: Denies: Hx Peritoneal Dialysis Musculoskeletal Medical History: Reports Hx Arthritis, Reports Hx Musculoskeletal Trauma - Immunizations Hx Diphtheria, Pertussis, Tetanus Vaccination: No <STORMY DESAI - Last Filed: 12/18/17 12:38> Review of Systems <TRIXIESTORMY Elder - Last Filed: 12/18/17 12:38> <BENJAMIN FIORE - Last Filed: 12/18/17 12:44> - Review of Systems Notes: Dictated (STORMY DESAI) Physical Exam <STORMY DESAI - Last Filed: 12/18/17 12:38> <BENJAMIN FIORE - Last Filed: 12/18/17 12:44> - Vital signs Vitals: Temp Pulse Resp BP Pulse Ox 98.3 F 78 16 159/93 H 100 12/18/17 10:01 12/18/17 10:01 12/18/17 10:01 12/18/17 10:01 12/18/17 10:01 - Notes Notes: Dictated (STORMY DESAI) Course - Laboratory Result Diagrams: 12/18/17 10:40 12/18/17 10:40 <STORMY DESAI - Last Filed: 12/18/17 12:38> - Laboratory Result Diagrams: 12/18/17 10:40 12/18/17 10:40 <BENJAMIN FIORE - Last Filed: 12/18/17 12:44> - Vital Signs Vital signs: Temp Pulse Resp BP Pulse Ox 98.3 F 78 16 159/93 H 100 12/18/17 10:01 12/18/17 10:01 12/18/17 10:01 12/18/17 10:01 12/18/17 10:01 - Laboratory Laboratory results interpreted by me: 12/18/17 10:40 Hgb 11.0 L Hct 34.8 L MCV 74 L MCH 23.5 L MCHC 31.6 L RDW 18.4 H Lymphocytes % 9.5 L Discharge <STORMY DESAI - Last Filed: 12/18/17 12:38> <BENJAMIN FIORE - Last Filed: 12/18/17 12:44> - Discharge Clinical Impression: Tonsillar abscess Hypertension Qualifiers: Hypertension type: essential hypertension Qualified Code(s): I10 - Essential ( primary) hypertension
[2017-12-18 10:55] LABS: ABSOLUTE EOSINOPHILS # (AUTO) 0.2 10^3/uL (0.0-0.6); ABSOLUTE LYMPHOCYTES (AUTO) 0.9 10^3/uL (0.5-4.7); ABSOLUTE MONOCYTES (AUTO) 1.1 10^3/uL (0.1-1.4); ABSOLUTE NEUT (AUTO) 6.8 10^3/uL (1.7-8.2); BASOPHILS % (AUTO) 0.3 % (0-2); HEMATOCRIT 34.8 % (37.9-51.0); LYMPHOCYTES % (AUTO) 9.5 % (13-45); MEAN CORPUSCULAR HEMOGLOBIN 23.5 pg (27.0-33.4); MEAN CORPUSCULAR HGB CONC 31.6 g/dL (32.0-36.0); MEAN CORPUSCULAR VOLUME 74 fl (80-97); MONOCYTES % (AUTO) 12.6 % (3-13); PLATELET COUNT 219 10^3/uL (150-450); RED BLOOD COUNT 4.68 10^6/uL (4.35-5.55); RED CELL DISTRIBUTION WIDTH 18.4 % (11.5-14.0); SEGMENTED NEUTROPHILS % (AUTO) 75.6 % (42-78); TOTAL CELLS COUNTED % (AUTO) 100 %
[2017-12-18 11:15] LABS: ALANINE AMINOTRANSFERASE 30 U/L (21-72); ALBUMIN 4.3 g/dL (3.5-5.0); ALKALINE PHOSPHATASE 109 U/L (38-126); ANION GAP 12 (5-19); ASPARTATE AMINO TRANSFERASE 23 U/L (17-59); BILIRUBIN,DIRECT 0.3 mg/dL (0.0-0.4); BILIRUBIN,TOTAL 0.8 mg/dL (0.2-1.3); BLOOD UREA NITROGEN 16 mg/dL (7-20); CALCIUM 9.4 mg/dL (8.4-10.2); CARBON DIOXIDE 27 mmol/L (22-30); CHLORIDE 102 mmol/L (98-107); GLUCOSE 99 mg/dL (75-110); SODIUM 141.2 mmol/L (137-145); TOTAL PROTEIN 7.7 g/dL (6.3-8.2)
--- NOTE | 2017-12-18 12:18 | EKG REPORT ---
SEVERITY:- OTHERWISE NORMAL ECG - SINUS RHYTHM LEFT AXIS DEVIATION : Confirmed by: Torito Escalera MD 18-Dec-2017 12:17:36
[2017-12-18] MEDS ORDERED: DEXAMETHASONE SOD PHOS INJ 10 MG/1 ML VIAL IV ONE (12:41)
[2017-12-18] MEDS ORDERED: PIPERACILLIN/TAZOBACTAM 3.375 GM VIAL IV ONE (12:41)
--- NOTE | 2017-12-18 12:45 | RADIOLOGY REPORT (SQ) ---
EXAM DESCRIPTION: CT SOFT TISSUE NECK WITH COMPLETED DATE/TIME: 12/18/2017 12:03 pm REASON FOR STUDY: Left tonsillar swelling COMPARISON: CT temporal bones/orbits 09/27/2012 TECHNIQUE: Post IV contrasted scanning from skull base through lung apices with review of bone, soft tissue and lung windows. Reconstructed coronal and sagittal MPR images reviewed. All images stored on PACS. All CT scanners at this facility use dose modulation, iterative reconstruction, and/or weight based d osing when appropriate to reduce radiation dose to as low as reasonably achievable (ALARA). [facility]: Dose Right [facility]: CareDose [facility]: Dose Right [facility]: Teradose 4D [facility]: Cardio control CONTRAST TYPE AND DOSE: contrast/concentration: Isovue 350.00 mg/ml; Total Contrast Delivered: 75.0 ml; Total Saline Delivered: 55.0 ml RENAL FUNCTION: Creatinine 0.8 RADIATION DOSE: CT Rad equipment meets quality standard of care and radiation dose reduction techniq ues were employed. CTDIvol: 16.7 mGy. DLP: 533 mGy-cm. . LIMITATIONS: None. FINDINGS: The left pharyngeal tonsil and tonsillar fossae are abnormal. Ill-defined inflammatory ph legmon replaces the left pharyngeal tonsil and extends into the left parapharyngeal space. There is a 1 cm fluid collection along the deep aspect of the tonsil on axial image 36 and coronal image 28 wo rrisome for a small intra tonsillar or peritonsillar abscess. Inflammatory phlegmon and swelling extends into the left supraglottic laryngeal soft tissues with asy mmetric swelling of the left epiglottis and aryepiglottic fold causing moderate airway narrowing. There is trace fluid in the prevertebral space on sagittal image 47, from the skullbase down to the C 7 level without prevertebral space abscess. Findings discussed with Isabela Au, 1230 hours, 12/18/2017. SKULL BASE: Inferior brain parenchyma unremarkable. MAJOR SALIVARY GLANDS: No solid or cystic masses. No inflammatory changes. LYMPHADENOPATHY: 1.8 x 1.2 cm right peritracheal lymph node in the thoracic inlet axial image 109. S cattered less than 7 mm short axis cervical lymph nodes are present likely reactive. MUCOSAL MASSES OR ASYMMETRY: As above LARYNX/CORDS: As above VASCULAR STRUCTURES: The major vessels are patent. LUNG APICES: Clear. BONES: Intact. THYROID: Inferior right lobe thyroid 1.6 x 1.4 cm hypodense nodule. Outpatient Thyroid ultrasound re commended for followup. PARANASAL SINUSES: Clear. OTHER: No other significant finding. IMPRESSION: Abnormal left pharyngeal tonsil and tonsillar fossa. Diffuse phlegmon is present with a 1 cm fluid collection along the deep aspect of the left pharyngeal tonsil likely a small intra tonsi llar or peritonsillar abscess. Inflammation extends into the supraglottic larynx with moderate airway narrowing. There is a small amount of fluid in the prevertebral space in the neck. Findings discussed with the emergency room attending physician as above. TECHNICAL DOCUMENTATION: JOB ID: [id number] Quality ID # [id number]: Final reports with documentation of one or more dose reduction techniques (e.g., Au tomated exposure control, adjustment of the mA and/or kV according to patient size, use of iterative reconstruction technique) 2010 [employer]- All Rights Reserved Reading location - IP/workstation name: [email or web address]
--- NOTE | 2017-12-18 13:21 | ER Document Report ---
ED General - General Chief Complaint: Shortness Of Breath Stated Complaint: THROAT PAIN, DIFFICULTY BREATHING Time Seen by Provider: 12/18/17 10:36 Notes: 52-year-old male to the emergency department chief complaint of sore throat. Patient states that he has had sore throat getting worse over the last couple of weeks. Was seen on December 03. Prescribed albuterol prednisone and doxycycline for possible bronchitis. States he continues to have coughing. Swelling is getting so bad he cannot swallow today. Having some shortness of breath as well. Feels like he has some burning and tightness in the chest as well. Intermittent fevers and chills. Denies any smoking other than occasional marijuana use. No abnormal rash. No fevers at home. Hurts to move his neck. Swelling in his neck mostly on the left side. TRAVEL OUTSIDE OF THE [place] IN LAST 30 DAYS: No - HPI Onset: Last week Onset/Duration: Gradual, Worse Quality of pain: Stabbing Severity: Moderate Pain Level: 4 Exacerbated by: Coughing, Deep breathing, Food, Other - Following - Related Data Allergies/Adverse Reactions: No Known Allergies Allergy (Verified 12/18/17 10:21) Past Medical History - General Information source: Patient - Social History Smoking Status: Never Smoker Cigarette use (# per day): No Chew tobacco use (# tins/day): No Frequency of alcohol use: Heavy Drug Abuse: Marijuana Lives with: Alone Family History: Reviewed & Not Pertinent, Arthritis, CVA. denies: CAD, COPD, DM , Hyperlipidemia, Hypertension, Malignancy, Thyroid Disfunction Patient has suicidal ideation: No Patient has homicidal ideation: No - Past Medical History Cardiac Medical History: Reports: Hx Hypertension Pulmonary Medical History: Reports: Hx Asthma, Hx Bronchitis Renal/ Medical History: Denies: Hx Peritoneal Dialysis Musculoskeletal Medical History: Reports Hx Arthritis, Reports Hx Musculoskeletal Trauma - Immunizations Hx Diphtheria, Pertussis, Tetanus Vaccination: No Review of Systems - Review of Systems Notes: Constitutional: denies: Chills, Diaphoresis, Fever, Malaise, Weakness EENT: Complaining of neck swelling, difficulty swallowing, pain in the throat, Cardiovascular: denies: Palpitations, Heart racing, Orthopnea, Dyspnea,. Does have some tightness in the chest and chest pain on occasion seem to be getting worse over the last week. Respiratory: Does complain of persistent cough and difficulty breathing. Gastrointestinal: denies: Abdominal pain, Diarrhea, Nausea, Vomiting, Black stools, bright red blood in stool Genitourinary: denies: Burning, Dysuria, Discharge, Frequency, Flank pain, Hematuria Musculoskeletal: denies: Joint pain, Joint swelling, Muscle pain, Muscle stiffness, back pain Hematologic/Lymphatic: denies: Anemia, Easy bleeding, Easy bruising, Blood clots Neurological/Psychological: denies: Confusion, Dementia, Depression, Loss of consciousness Skin: No lesions, no masses, no skin breakdown, no abscesses Physical Exam - Vital signs Vitals: Temp Pulse Resp BP Pulse Ox 98.3 F 78 16 159/93 H 100 12/18/17 10:01 12/18/17 10:01 12/18/17 10:01 12/18/17 10:01 12/18/17 10:01 Interpretation: Normal - General General appearance: Appears well, Alert - HEENT Head: Normocephalic, Atraumatic Eyes: Normal Pupils: PERRL Pharynx: Erythema, Peritonsillar abscess Neck: Lymphadenopathy, Other - Tender swollen lymph nodes in the left anterior neck. - Respiratory Respiratory status: No respiratory distress Chest status: Nontender Breath sounds: Normal Chest palpation: Normal - Cardiovascular Rhythm: Regular Heart sounds: Normal auscultation Murmur: No - Abdominal Inspection: Normal Distension: No distension Bowel sounds: Normal Tenderness: Nontender Organomegaly: No organomegaly - Back Back: Normal, Nontender - Extremities General upper extremity: Normal inspection, Nontender, Normal color, Normal ROM , Normal temperature General lower extremity: Normal inspection, Nontender, Normal color, Normal ROM , Normal temperature, Normal weight bearing. No: Quincy's sign - Neurological Neuro grossly intact: Yes Cognition: Normal Orientation: AAOx4 [place] Coma Scale Eye Opening: Spontaneous [place] Coma Scale Verbal: Oriented Wally Coma Scale Motor: Obeys Commands [place] Coma Scale Total: 15 Speech: Normal Motor strength normal: LUE, RUE, LLE, RLE Sensory: Normal - Psychological Associated symptoms: Normal affect, Normal mood - Skin Skin Temperature: Warm Skin Moisture: Dry Skin Color: Normal Course - Re-evaluation Re-evalutation: 12/18/17 13:20 Patient has a normal WBC count. Afebrile in the emergency department. CT scan shows significant amount of peritonsillar edema with retropharyngeal swelling but no obvious retropharyngeal abscess at this time. Will add chest x-ray cardiac labs. EKG is unremarkable. Consult with ENT shortly regarding definitive care. Steroids and IV antibiotics have been given. 12/18/17 14:05 Spoke with our ENT. He does recommend patient be admitted to the hospital for IV antibiotics however patient will need to be transferred because ENT is not covering the hospital this weekend. Will attempt to contact receiving hospital for possible admit there. Patient is resting comfortably at this time. 12/18/17 15:12 Spoke with ENT at [facility] he recommends IV antibiotics only. There is no bed available at that facility. States that there is no indication at this time to drain and 1 cm abscess. This is also what our ENT at this facility recommends. I am going to consult with the hospitalist for admission here. There are no beds available at [facility] or at the [facility] in [place]. I will also call [facility] but at this time I think patient would be able to be admitted at this facility. 12/18/17 16:[address] Maya at [facility]. He feels this patient would be better served at a higher level of care. He is concerned about the retropharyngeal prevertebral swelling. He is concerned that this could evolve into a retropharyngeal abscess. He recommends transferring patient to place that has CT surgery available if possible. Will attempt to contact [facility] or [place] and/or both at this time as hospital in [place] is on divert as well as [facility] is on divert. 12/18/17 16:45 Dr. Correia with ENT at [facility] states the patient needs to go to the ER to be evaluated first. At this time waiting on callback from [facility] emergency department for possible ER to ER transfer. 12/18/17 16:53 Dr. Gaviria at [facility] emergency department has accepted this patient is an ER to ER transport. Patient is stable at this time. No pending airway collapse. Patient will need ACLS transport in my opinion. CT scan pending at this time. Patient stable for transport at this time. 12/18/17 16:56 Laboratory 12/18/17 12/18/17 12/18/17 10:40 10:40 10:40 WBC 9.0 RBC 4.68 Hgb 11.0 L Hct 34.8 L MCV 74 L MCH 23.5 L MCHC 31.6 L RDW 18.4 H Plt Count 219 Seg Neutrophils % 75.6 Lymphocytes % 9.5 L Monocytes % 12.6 Eosinophils % 2.0 Basophils % 0.3 Absolute Neutrophils 6.8 Absolute Lymphocytes 0.9 Absolute Monocytes 1.1 Absolute Eosinophils 0.2 Absolute Basophils 0.0 PT INR APTT Sodium 141.2 Potassium 4.0 Chloride 102 Carbon Dioxide 27 Anion Gap 12 BUN 16 Creatinine 0.79 Est GFR ( Amer) > 60 Est GFR (Non-Af Amer) > 60 Glucose 99 Lactic Acid Calcium 9.4 Total Bilirubin 0.8 Direct Bilirubin 0.3 Neonat Total Bilirubin Not Reportable Neonat Direct Bilirubin Not Reportable Neonat Indirect Bili Not Reportable AST 23 ALT 30 Alkaline Phosphatase 109 Troponin I < 0.012 Total Protein 7.7 Albumin 4.3 12/18/17 12/18/17 13:55 15:38 WBC RBC Hgb Hct MCV MCH MCHC RDW Plt Count Seg Neutrophils % Lymphocytes % Monocytes % Eosinophils % Basophils % Absolute Neutrophils Absolute Lymphocytes Absolute Monocytes Absolute Eosinophils Absolute Basophils PT 13.0 INR 0.94 APTT 29.9 Sodium Potassium Chloride Carbon Dioxide Anion Gap BUN Creatinine Est GFR ( Amer) Est GFR (Non-Af Amer) Glucose Lactic Acid 0.8 Calcium Total Bilirubin Direct Bilirubin Neonat Total Bilirubin Neonat Direct Bilirubin Neonat Indirect Bili AST ALT Alkaline Phosphatase Troponin I Total Protein Albumin Soft Tissue Neck CT 12/18/17 10:36 IMPRESSION: Abnormal left pharyngeal tonsil and tonsillar fossa. Diffuse phlegmon is present with a 1 cm fluid collection along the deep aspect of the left pharyngeal tonsil likely a small intra tonsillar or peritonsillar abscess. Inflammation extends into the supraglottic larynx with moderate airway narrowing. There is a small amount of fluid in the prevertebral space in the neck. Findings discussed with the emergency room attending physician as above. Chest X-Ray 12/18/17 13:16 IMPRESSION: NO ACUTE RADIOGRAPHIC FINDING IN THE CHEST. - Vital Signs Vital signs: Temp Pulse Resp BP Pulse Ox 98.8 F 77 18 159/98 H 97 12/18/17 16:00 12/18/17 12:39 12/18/17 17:00 12/18/17 12:39 12/18/17 17:07 - Laboratory Result Diagrams: 12/18/17 10:40 12/18/17 10:40 Laboratory results interpreted by me: 12/18/17 12/18/17 10:40 17:57 Hgb 11.0 L Hct 34.8 L MCV 74 L MCH 23.5 L MCHC 31.6 L RDW 18.4 H Lymphocytes % 9.5 L Urine Protein 30 H Urine Glucose (UA) 150 H Urine Ketones 80 H Ur Leukocyte Esterase SMALL H Urine Ascorbic Acid 40 H - EKG Interpretation by Me EKG shows normal: Sinus rhythm, Intervals, QRS Complexes, ST-T [place]/QRS: Left axis deviation Critical Care Note - Critical Care Note Total time excluding time spent on procedures (mins): 60 Comments: Consultation with multiple specialists, coordinated fashion of transfer of care , airway swelling. Discharge - Discharge Clinical Impression: Tonsillar abscess, Epiglottitis Condition: Good Disposition: [place]
[2017-12-18] MEDS ORDERED: LORAZEPAM INJ 2 MG/1 ML VIAL IV ONE (13:59)
--- NOTE | 2017-12-18 14:52 | RADIOLOGY REPORT (SQ) ---
EXAM DESCRIPTION: CHEST 2 VIEWS COMPLETED DATE/TIME: 12/18/2017 2:12 pm REASON FOR STUDY: chest pain COMPARISON: 07/12/2016 EXAM PARAMETERS: NUMBER OF VIEWS: two views TECHNIQUE: Digital Frontal and Lateral radiographic views of the chest acquired. RADIATION DOSE: NA LIMITATIONS: none FINDINGS: LUNGS AND PLEURA: No acute opacities, masses or pneumothorax. No pleural effusion. MEDIASTINUM AND HILAR STRUCTURES: Stable. HEART AND VASCULAR STRUCTURES: Heart normal size. No evidence for failure. BONES: No acute findings. HARDWARE: None in the chest. OTHER: No other significant finding. IMPRESSION: NO ACUTE RADIOGRAPHIC FINDING IN THE CHEST. TECHNICAL DOCUMENTATION: JOB ID: [id number] [employer]- All Rights Reserved Reading location - IP/workstation name: [email or web address]
[2017-12-18] MEDS ORDERED: HYDROMORPHONE HCL INJ/PF 2 MG/ML AMPULE IV ONE (15:16)
[2017-12-18 16:01] LABS: INTERNATIONAL RATION (INR) 0.94
[2017-12-18 16:02] LABS: PARTIAL THROMBOPLASTIN TIME 29.9 SEC (23.5-35.8)
[2017-12-18] MEDS ORDERED: RACEPINEPHRINE HCL 2.25% NEB 0.5 ML AMPUL NEB ONE (16:57)
[2017-12-18] MEDS ORDERED: NORMAL SALINE 500 ML IV ONE (17:38)
[2017-12-18] MEDS ORDERED: PIPERACILLIN SODIUM/TAZOBACTAM 3.375 GM in NORMAL SALINE 100 ML IV SCH (18:00)
[2017-12-18 18:25] LABS: APPEARANCE,URINE CLEAR; BILIRUBIN,URINE NEGATIVE (NEGATIVE); COLOR,URINE YELLOW; GLUCOSE, URINE 150 mg/dL (NEGATIVE); KETONES,URINE 80 mg/dL (NEGATIVE); LEUKOCYTE ESTERASE,URINE SMALL (NEGATIVE); NITRITE,URINE NEGATIVE (NEGATIVE); PROTEIN,URINE 30 mg/dL (NEGATIVE); URINE SPECIFIC GRAVITY 1.049; UROBILINOGEN,URINE NEGATIVE mg/dL (<2.0)
[2017-12-18] MEDS ORDERED: LORAZEPAM 1 MG TABLET PO ONE (18:53)
--- NOTE | 2017-12-18 18:53 | RADIOLOGY REPORT (SQ) ---
EXAM DESCRIPTION: CT CHEST WITHOUT COMPLETED DATE/TIME: 12/18/2017 5:50 pm REASON FOR STUDY: chest pain, neck swelling COMPARISON: None. TECHNIQUE: CT scan performed of the chest without intravenous contrast. Images reviewed with lung, soft tissue and bone windows. Reconstructed coronal and sagittal MPR images reviewed. All images st ored on PACS. All CT scanners at this facility use dose modulation, iterative reconstruction, and/or weight based d osing when appropriate to reduce radiation dose to as low as reasonably achievable (ALARA). [facility]: Dose Right [facility]: CareDose [facility]: Dose Right [facility]: Teradose 4D [facility]: [employer] RADIATION DOSE: CT Rad equipment meets quality standard of care and radiation dose reduction techniq ues were employed. CTDIvol: 13.2 mGy. DLP: 559 mGy-cm. mGy. LIMITATIONS: No technical limitations. FINDINGS: LUNGS AND PLEURA: No masses, infiltrates, or pneumothorax. No pleural effusions or pleura l calcifications. HILAR AND MEDIASTINAL STRUCTURES: There are few nonspecific mediastinal nodes. HEART AND VASCULAR STRUCTURES: No aneurysm. No pericardial effusion. UPPER ABDOMEN: Nonobstructing intrarenal calculi. THYROID AND OTHER SOFT TISSUES: No masses. No adenopathy. BONES: No significant finding. HARDWARE: None in the chest. OTHER: No other significant findings. IMPRESSION: There are some the small nonspecific mediastinal nodes. No acute findings are seen in t he chest. Intrarenal calculi. TECHNICAL DOCUMENTATION: JOB ID: [id number] Quality ID # [id number]: Final reports with documentation of one or more dose reduction techniques (e.g., Au tomated exposure control, adjustment of the mA and/or kV according to patient size, use of iterative reconstruction technique) 2010 [employer]- All Rights Reserved Reading location - IP/workstation name: [email or web address]
[2017-12-18] MEDS ORDERED: PIPERACILLIN/TAZOBACTAM 3.375 GM VIAL IV SCH (21:00)
[2017-12-18 21:15] VITALS: BP 140/89
== END 2017-12-18 20:00 | disposition short-term general hospital (02) ==
LOC: ER 09:43
DX: J36 Peritonsillar abscess (principal); J05.10 Acute epiglottitis without obstruction; R06.00 Dyspnea, unspecified; R06.02 Shortness of breath
CPT/HCPCS: 93005; 94640; 99291; 96372; 96375; 96365; 96366; 96368; 36415; 87040; 85025; 85610; 85730; 80053; 81001; 84484; 83605; 71046; 70491; 71250; 93010; J1885; J1170; J2060; J7040; J1100; J3490; J2543

== ENCOUNTER 2017-12-25 14:02 | Emergency (ER) | payer SELFPAY ==
[2017-12-25] MEDS ORDERED: NORMAL SALINE 1000 ML 1,000 ML IV ONE (14:36)
[2017-12-25] MEDS ORDERED: MECLIZINE HCL 25 MG TABLET PO ONE (14:37)
--- NOTE | 2017-12-25 14:38 | ER Document Report ---
ED Medical Screen (RME) - General Chief Complaint: Dizziness Stated Complaint: DIZZY Time Seen by Provider: 12/25/17 14:31 TRAVEL OUTSIDE OF THE [place]. IN LAST 30 DAYS: No - HPI Notes: 12/25/17 14:37 Recently transferred and discharged her [facility] for a tonsillar abscess epiglottitis also started on a new blood pressure medication states now having dizziness when changing position. - Related Data Allergies/Adverse Reactions: No Known Allergies Allergy (Verified 12/25/17 14:03) Past Medical History - Social History Chew tobacco use (# tins/day): No Frequency of alcohol use: None Drug Abuse: Marijuana Family history: None - Past Medical History Cardiac Medical History: Reports: Hx Hypertension Pulmonary Medical History: Reports: Hx Asthma, Hx Bronchitis Renal/ Medical History: Denies: Hx Peritoneal Dialysis Musculoskeltal Medical History: Reports Hx Arthritis, Reports Hx Musculoskeletal Trauma - Immunizations Hx Diphtheria, Pertussis, Tetanus Vaccination: No Review of Systems - Review of Systems Cardiovascular: Dizziness -: Yes All other systems reviewed and negative Physical Exam - Respiratory Respiratory status: No respiratory distress Chest status: Nontender Breath sounds: Normal Chest palpation: Normal - Cardiovascular Rhythm: Regular Heart sounds: Normal auscultation
[2017-12-25 15:04] LABS: ABSOLUTE EOSINOPHILS # (AUTO) 0.2 10^3/uL (0.0-0.6); ABSOLUTE LYMPHOCYTES (AUTO) 1.4 10^3/uL (0.5-4.7); ABSOLUTE MONOCYTES (AUTO) 0.7 10^3/uL (0.1-1.4); ABSOLUTE NEUT (AUTO) 3.4 10^3/uL (1.7-8.2); BASOPHILS % (AUTO) 0.4 % (0-2); EOSINOPHILS % (AUTO) 3.6 % (0-6); HEMATOCRIT 35.9 % (37.9-51.0); HEMOGLOBIN 11.3 g/dL (13.5-17.0); LYMPHOCYTES % (AUTO) 24.9 % (13-45); MEAN CORPUSCULAR HEMOGLOBIN 23.3 pg (27.0-33.4); MEAN CORPUSCULAR HGB CONC 31.4 g/dL (32.0-36.0); MEAN CORPUSCULAR VOLUME 74 fl (80-97); MONOCYTES % (AUTO) 12.6 % (3-13); PLATELET COUNT 245 10^3/uL (150-450); RED BLOOD COUNT 4.85 10^6/uL (4.35-5.55); RED CELL DISTRIBUTION WIDTH 18.1 % (11.5-14.0); SEGMENTED NEUTROPHILS % (AUTO) 58.5 % (42-78); TOTAL CELLS COUNTED % (AUTO) 100 %; WHITE BLOOD COUNT 5.8 10^3/uL (4.0-10.5)
[2017-12-25 15:25] LABS: ANION GAP 16 (5-19); BLOOD UREA NITROGEN 14 mg/dL (7-20); CALCIUM 9.6 mg/dL (8.4-10.2); CARBON DIOXIDE 24 mmol/L (22-30); CHLORIDE 100 mmol/L (98-107); GLUCOSE 92 mg/dL (75-110); POTASSIUM 4.3 mmol/L (3.6-5.0); SODIUM 139.8 mmol/L (137-145)
--- NOTE | 2017-12-25 16:05 | ER Document Report ---
ED Dizziness/Weakness - General Chief Complaint: Dizziness Stated Complaint: DIZZY Time Seen by Provider: 12/25/17 14:31 Mode of Arrival: Ambulatory Information source: Patient TRAVEL OUTSIDE OF THE [place] IN LAST 30 DAYS: No - HPI Patient complains to provider of: Dizziness Onset: Last week Onset/Duration: Intermittent Quality of pain: No pain Severity: Mild Associated symptoms: Lightheaded, Nausea Exacerbated by: Change in position Baseline gait: Walks w/o assistance Notes: Patient is a 52-year-old male presenting to the emergency room complaining of dizzy spells, states he feels like he is going to pass out at times, symptoms started just a few days ago, he was discharged from [facility] hospital secondary to peritonsillar abscess and possible epiglottitis, he was seen at an urgent care clinic since then and started on a new blood pressure medication which he cannot recall the name of, symptoms are worse with change of position especially when he is going from a kneeling or bending over to standing, he reports a mild headache associated with it, denies any vision changes, no nausea or no chest pain or shortness of breath - Related Data Allergies/Adverse Reactions: No Known Allergies Allergy (Verified 12/25/17 14:03) Past Medical History - General Information source: Patient - Social History Smoking Status: Never Smoker Chew tobacco use (# tins/day): No Frequency of alcohol use: None Drug Abuse: Marijuana Family History: Reviewed & Not Pertinent, Arthritis, CVA. denies: CAD, COPD, DM , Hyperlipidemia, Hypertension, Malignancy, Thyroid Disfunction Patient has suicidal ideation: No Patient has homicidal ideation: No - Past Medical History Cardiac Medical History: Reports: Hx Hypertension Pulmonary Medical History: Reports: Hx Asthma, Hx Bronchitis Renal/ Medical History: Denies: Hx Peritoneal Dialysis Musculoskeletal Medical History: Reports Hx Arthritis, Reports Hx Musculoskeletal Trauma - Immunizations Hx Diphtheria, Pertussis, Tetanus Vaccination: No Review of Systems - Review of Systems Constitutional: No symptoms reported EENT: No symptoms reported Cardiovascular: See HPI Respiratory: No symptoms reported Gastrointestinal: No symptoms reported Genitourinary: No symptoms reported Male Genitourinary: No symptoms reported Musculoskeletal: No symptoms reported Skin: No symptoms reported Hematologic/Lymphatic: No symptoms reported Neurological/Psychological: Headaches -: Yes All other systems reviewed and negative Physical Exam - Vital signs Vitals: Pulse Resp BP Pulse Ox 73 18 140/85 H 98 08/23/18 15:06 12/25/17 15:06 12/25/17 15:06 12/25/17 15:06 Interpretation: Normal - General General appearance: Appears well, Alert - HEENT Head: Normocephalic, Atraumatic Eyes: Normal Pupils: PERRL - Respiratory Respiratory status: No respiratory distress Chest status: Nontender Breath sounds: Normal Chest palpation: Normal - Cardiovascular Rhythm: Regular Heart sounds: Normal auscultation Murmur: No - Abdominal Inspection: Normal Distension: No distension Bowel sounds: Normal Tenderness: Nontender Organomegaly: No organomegaly - Back Back: Normal, Nontender - Extremities General upper extremity: Normal inspection, Nontender, Normal color, Normal ROM , Normal temperature General lower extremity: Normal inspection, Nontender, Normal color, Normal ROM , Normal temperature, Normal weight bearing. No: Quincy's sign - Neurological Neuro grossly intact: Yes Cognition: Normal Orientation: AAOx4 Wally Coma Scale Eye Opening: Spontaneous [place] Coma Scale Verbal: Oriented [place] Coma Scale Motor: Obeys Commands Wally Coma Scale Total: 15 Speech: Normal Motor strength normal: LUE, RUE, LLE, RLE Sensory: Normal - Psychological Associated symptoms: Normal affect, Normal mood - Skin Skin Temperature: Warm Skin Moisture: Dry Skin Color: Normal Course - Re-evaluation Re-evalutation: 12/25/17 16:03 Lab findings discussed with patient at bedside which are unremarkable, orthostatic vital signs do reveal slight increase in heart rate upon standing, consistent with likely orthostatic hypotension leading to patient's dizzy spells , since patient cannot recall the name or the dosage of blood pressure medication he was recent started on he was advised to hold this medication until he can further follow-up with primary care and discuss whether he should continue at the current dosage or try different, patient was otherwise advised to eat and drink well throughout the day, follow-up with primary care in 1-2 days or return if symptoms worsen, patient acknowledges understanding and agreement with this plan - Vital Signs Vital signs: Temp Pulse Resp BP Pulse Ox 69 18 125/76 98 12/25/17 15:45 12/25/17 15:06 12/25/17 15:45 12/25/17 15:06 - Laboratory Result Diagrams: 12/25/17 14:48 12/25/17 14:48 Laboratory results interpreted by me: 12/25/17 14:48 Hgb 11.3 L Hct 35.9 L MCV 74 L MCH 23.3 L MCHC 31.4 L RDW 18.1 H Discharge - Discharge Clinical Impression: Dizziness Condition: Stable Disposition: HOME, SELF-CARE Instructions: Dizziness ([facility]) Additional Instructions: Follow up with your primary care provider in one to 2 days. Return to the emergency room immediately if symptoms worsen or any additional concerns. Referrals: ADITI RICKETTS PA-C [Primary Care Provider] - Follow up as needed
[2017-12-25 16:46] VITALS: BP 128/74
== END 2017-12-25 16:46 | disposition home or self-care (01) ==
LOC: ER 14:02
DX: R42 Dizziness and giddiness (principal); R11.0 Nausea; R51 Headache; I10 Essential (primary) hypertension; J45.909 Unspecified asthma, uncomplicated
CPT/HCPCS: 99284; 96360; 36415; 85025; 80048; J7030